=== PATIENT | female | born 1985 | race Caucasian/White ===

== ENCOUNTER 2019-07-06 01:04 | Observation (INO) ==
[2019-07-06] MEDS ORDERED: ONDANSETRON INJ 2 MG/ML 2 ML VIAL IV PRN (04:50)
[2019-07-06] MEDS ORDERED: BUTORPHANOL TARTRATE 1 MG/ML VIAL IV PRN (04:51)
[2019-07-06] MEDS: LACTATED RINGER'S 1,000 ML IV PRN ×2 (05:05→06:14)
--- NOTE | 2019-07-06 09:11 | Progress Note ---
Date of Service July 06, 2019 Subjective Pt seen in triage for nausea and vomiting at 40+ week On arrival her vomiting was improved after IVH and Zofran FHR CAT1 Ctx but minimal intensity pt reports feeling better she si scheduled for induction next week'agrred to go hoe and RTc if ctx return Results & Data Vital Signs (Past 12 Hours) Vital Signs Temp Pulse Resp BP 07/06/19 08:49 36.8 C 70 20 130/80 07/06/19 04:53 36.7 C 71 16 118/73 07/06/19 01:13 36.8 C 84 18 127/79 07/06/19 01:12 84 127/79
== END 2019-07-06 09:15 | disposition home or self-care (01) ==
LOC: OPB 01:04 → 4S1 01:04

== ENCOUNTER 2019-07-06 19:55 | Inpatient (IN) ==
[2019-07-06] MEDS ORDERED: OXYTOCIN 30 UNITS/500 ML BAG IV PRN (20:17)
[2019-07-06] MEDS: LACTATED RINGER'S 1,000 ML IV PRN ×2 (20:29→21:50)
[2019-07-06] MEDS ORDERED: BUPIVACAINE 0.25% 30 ML VIAL ONE (20:32)
[2019-07-06] MEDS ORDERED: ePHEDrine sulfate 50 MG/ML AMP ONE (20:32)
[2019-07-06] MEDS ORDERED: fentaNYL citrate 100 MCG/2 ML VIAL ONE (20:32)
[2019-07-06] MEDS ORDERED: fentaNYL 2MCG/ML ROPIV 1.25MG/ML 100 ML BAG EPI ONE (20:33)
[2019-07-06 20:40] LABS: Hematocrit (blood only) 34.1 % (37-47); Hemoglobin 11.8 g/dL (12.0-16.0); Mean Corpuscular Hemoglobin 30.2 pg (25-34); Mean Corpuscular Volume 87.2 fL (80-100); Mean Platelet Volume 10.5 fL (7.4-10.4); Platelet Count 303 K/uL (130-400); RDW Coefficient of Variation 13.2 % (11.5-14.5); RDW Standard Deviation 42.2 fL (36.4-46.3); Red Blood Count 3.91 M/uL (4.2-5.4); White Blood Count 14.01 K/uL (4.8-10.8)
--- NOTE | 2019-07-06 20:46 | Anesthesiology Consultation ---
Date of Service July 06, 2019 Assessment & Plan Chart Review Chart Review: Acceptable Risk for Surgery, Patient NOT seen in Pre Admission Testing and Acceptable Risk for Labor Epidural Consults Requested none ASA ASA2 Proposed Anesthesia Anesthesia Type: Labor Epidural Risk / Benefits Reviewed With: PT / POA / Parent / Guardian, Accepts Plan and I nformed Consent Obtained History Height/Weight Height: 5 ft 2 in Weight: 87.543 kg Allergies Allergy/AdvReac Type Severity Reaction Status Date / Time No Known Allergies Allergy Verified 07/06/19 01:34 Medications Home Medications Medication Instructions Recorded Confirmed Last Taken PNV cmb#95-ferrous fumarate-FA 1 tab PO DAILY 07/04/19 07/06/19 07/04/19 [] ferrous sulfate [Iron (ferrous 325 mg PO DAILY 07/04/19 07/06/19 07/04/19 sulfate)] Active Medications Generic Name Dose Route Start Last Admin Trade Name Freq PRN Reason Stop Dose Admin Lactated Ringer's 1,000 mls @ 125 mls/hr 07/06/19 20:17 07/06/19 20:29 Lr IV 07/08/19 20:16 125 mls/hr .Q8H PRN Administration L&D Protocol Protocol NPO Date Last Intake of Fluids: 07/06/19 Time Last Intake of Fluids: 18:30 Date Last Intake of Solids: 07/06/19 Time Last Intake of Solids: 12:00 Past Medical History Medical History Anemia GERD (gastroesophageal reflux disease) Obese [place] teeth removed Exercise / Class Metabolic Activity II 4-5 Yardwork/Stairs/Walk up hill Past Anesthesia History No Hx of Anesthesia Complications and No Family Hx of Anesthesia Complications History of PONV No Hx of PONV and No Hx of Motion Sickness Social History Smoking Status: Never smoker Hx Alcohol Use: No Hx Substance Use: No Physical Exam Vital Signs Last Vital Signs Pulse 78 07/06/19 20:41 Resp 22 07/06/19 20:04 BP 138/76 07/06/19 20:41 Constitutional + obese ENMT Mouth: no dentition abnormality Thyromental Distance: < 3.5 Finger Breadths Mallampati Class: II Neck normal visual inspection and trachea midline; neck extension not limited Respiratory normal respiratory effort Auscultation: lungs clear to auscultation bilaterally Cardiovascular Rate/Rhythm: regular rate and regular rhythm Heart Sounds: no murmur Musculoskeletal Spine: lumbar spine normal to inspection; normal cervical ROM Neurologic moves all extremities Motor/Sensory: no sensory deficit Psychiatric Orientation: alert and oriented x 3 Testing Laboratory Results 07/06/19 20:34
[2019-07-06] MEDS ORDERED: NALBUPHINE HCL INJ 10 MG/ML AMP IV PRN (21:12)
[2019-07-06] MEDS ORDERED: NALOXONE HCL 1 MG in SODIUM CHLORIDE 0.9% 1000ML 1,000 ML IV PRN (21:12)
[2019-07-06] MEDS ORDERED: NALOXONE HCL 0.4 MG/1 ML VIAL/CARP IV PRN (21:12)
[2019-07-06] MEDS ORDERED: DiphenhydrAMINE HCL 50 MG/ML VIAL IV PRN (21:12)
[2019-07-06] MEDS ORDERED: PROMETHAZINE HCL 25 MG in SODIUM CHLORIDE 0.9% 50 ML IV PRN (21:12)
[2019-07-06] MEDS ORDERED: ePHEDrine sulfate 50 MG/ML AMP IV PRN (21:12)
--- NOTE | 2019-07-06 21:38 | Labor Progress Brief Note ---
Date of Service July 06, 2019 Pt doing well s/p epidural analgesia VE; 4/100/-1 FHR; CAT1 AROM performed- light meconium, followed by late deceleration into the 90;s x5 mins Fetus responded to IVF,position change and oxygen FHR returns to baseline expectant management for now Results & Data Vital Signs (Past 12 Hours) Vital Signs Temp Pulse Resp BP Pulse Ox 07/06/19 21:32 82 99/56 L 100 07/06/19 21:29 86 112/64 07/06/19 21:27 89 96 07/06/19 21:25 108 H 108/62 07/06/19 21:22 97 H 107/57 L 96 07/06/19 21:19 85 105/58 L 07/06/19 21:17 90 96 07/06/19 21:16 96 H 102/55 L 07/06/19 21:13 93 H 104/57 L 07/06/19 21:12 94 H 97 07/06/19 21:10 95 H 108/55 L 07/06/19 21:07 91 H 104/55 L 97 07/06/19 21:04 82 121/65 07/06/19 21:02 91 H 98 07/06/19 20:57 80 98 07/06/19 20:52 74 98 07/06/19 20:45 36.8 C 07/06/19 20:41 78 138/76 07/06/19 20:04 87 22 128/77
[2019-07-06 21:51] LABS: Mean Corpuscular Hgb Conc 34.6 g/dL (32-36)
[2019-07-06] MEDS: ONDANSETRON INJ 2 MG/ML 2 ML VIAL IV PRN (22:07)
[2019-07-06] MEDS ORDERED: CALCIUM CARBONATE 500 MG CHEWABLE TAB PO PRN (23:25)
[2019-07-07] MEDS: LACTATED RINGER'S 1,000 ML IV PRN ×4 (03:17→15:13)
[2019-07-07] MEDS ORDERED: OXYTOCIN 30 UNITS/500 ML BAG IV PRN ×2 (03:33→18:00)
--- NOTE | 2019-07-07 03:33 | Labor Progress Brief Note ---
Date of Service July 07, 2019 pt doing well FHR; CAT1 Ctx. 2-4mins VE; 6/100/1 + meconium will augment Pitocin Results & Data Vital Signs (Past 12 Hours) Vital Signs Temp Pulse Resp BP Pulse Ox 07/07/19 03:27 92 H 100 07/07/19 03:25 83 129/63 07/07/19 03:22 94 H 99 07/07/19 03:17 91 H 100 07/07/19 03:15 90 115/63 07/07/19 03:12 87 99 07/07/19 03:07 89 99 07/07/19 03:06 103 H 121/57 L 07/07/19 03:02 76 96 07/07/19 03:00 37.2 C 18 07/07/19 02:57 80 106/56 L 94 07/07/19 02:52 79 95 07/07/19 02:47 79 95 07/07/19 02:46 79 107/56 L 07/07/19 02:42 79 95 07/07/19 02:37 80 95 07/07/19 02:35 90 110/59 L 07/07/19 02:32 81 95 07/07/19 02:27 81 94 07/07/19 02:25 74 110/54 L 07/07/19 02:22 79 95 07/07/19 02:17 76 95 07/07/19 02:16 79 108/56 L 07/07/19 02:12 76 95 07/07/19 02:07 78 106/58 L 96 07/07/19 02:02 76 96 07/07/19 02:00 20 07/07/19 01:57 72 96 07/07/19 01:55 73 113/59 L 07/07/19 01:52 74 96 07/07/19 01:47 72 97 07/07/19 01:45 73 108/58 L 07/07/19 01:42 73 97 07/07/19 01:37 75 100 07/07/19 01:35 73 123/75 07/07/19 01:32 102 H 100 07/07/19 01:30 20 07/07/19 01:27 86 125/76 99 07/07/19 01:22 85 100 07/07/19 01:17 97 H 100 07/07/19 01:15 97 H 134/94 07/07/19 01:12 71 99 07/07/19 01:07 72 129/75 100 07/07/19 01:02 79 100 07/07/19 01:00 20 07/07/19 00:57 109 H 100 07/07/19 00:56 121 H 149/104 H 07/07/19 00:52 87 100 07/07/19 00:50 36.9 C 07/07/19 00:47 101 H 99 07/07/19 00:46 103 H 128/74 07/07/19 00:42 74 95 07/07/19 00:40 72 94 07/07/19 00:37 81 96 07/07/19 00:35 71 106/57 L 07/07/19 00:34 75 94 07/07/19 00:32 73 94 07/07/19 00:30 20 07/07/19 00:29 72 94 07/07/19 00:27 72 95 07/07/19 00:25 70 113/62 07/07/19 00:22 71 96 07/07/19 00:17 68 97 07/07/19 00:16 73 119/59 L 07/07/19 00:12 72 96 07/07/19 00:07 75 99 07/07/19 00:05 71 120/60 07/07/19 00:02 66 100 07/07/19 00:00 20 07/06/19 23:57 67 100 07/06/19 23:55 72 118/59 L 07/06/19 23:52 69 99 07/06/19 23:47 74 99 07/06/19 23:45 70 113/59 L 07/06/19 23:42 68 99 07/06/19 23:37 72 98 07/06/19 23:36 78 126/58 L 07/06/19 23:32 73 98 07/06/19 23:30 18 07/06/19 23:27 94 H 99 07/06/19 23:26 82 123/65 07/06/19 23:22 113 H 99 07/06/19 23:17 126 H 99 07/06/19 23:16 73 122/76 07/06/19 23:12 86 100 07/06/19 23:07 84 100 07/06/19 23:05 77 122/76 07/06/19 23:02 100 H 97 07/06/19 23:00 36.7 C 20 07/06/19 22:57 85 98 07/06/19 22:56 89 130/79 07/06/19 22:52 84 97 07/06/19 22:47 95 H 97 07/06/19 22:45 87 127/76 07/06/19 22:42 84 97 07/06/19 22:37 90 97 07/06/19 22:35 77 125/63 07/06/19 22:32 88 97 07/06/19 22:27 95 H 99 07/06/19 22:25 90 119/69 07/06/19 22:22 81 97 07/06/19 22:17 85 97 07/06/19 22:16 83 118/61 07/06/19 22:12 102 H 97 07/06/19 22:07 92 H 98 07/06/19 22:06 96 H 135/71 07/06/19 22:02 92 H 97 07/06/19 21:57 90 95 07/06/19 21:56 92 H 94 07/06/19 21:55 88 103/58 L 07/06/19 21:52 89 96 07/06/19 21:47 85 97 07/06/19 21:45 85 100/57 L 07/06/19 21:42 89 97 07/06/19 21:37 95 H 98 07/06/19 21:34 81 100/58 L 07/06/19 21:32 82 99/56 L 100 07/06/19 21:29 86 112/64 07/06/19 21:27 89 96 07/06/19 21:25 108 H 108/62 07/06/19 21:22 97 H 107/57 L 96 07/06/19 21:19 85 105/58 L 07/06/19 21:17 90 96 07/06/19 21:16 96 H 102/55 L 07/06/19 21:13 93 H 104/57 L 07/06/19 21:12 94 H 97 07/06/19 21:10 95 H 108/55 L 07/06/19 21:07 91 H 104/55 L 97 07/06/19 21:04 82 121/65 07/06/19 21:02 91 H 98 07/06/19 20:57 80 98 07/06/19 20:52 74 98 07/06/19 20:45 36.8 C 07/06/19 20:41 78 138/76 07/06/19 20:04 87 22 128/77
[2019-07-07] MEDS: ONDANSETRON INJ 2 MG/ML 2 ML VIAL IV PRN (03:34)
[2019-07-07] MEDS ORDERED: fentaNYL 2MCG/ML ROPIV 1.25MG/ML 100 ML BAG EPI ONE (05:03)
[2019-07-07] MEDS: fentaNYL 2MCG/ML ROPIV 1.25MG/ML 100 ML BAG EPI PRN ×2 (05:04→11:20)
--- NOTE | 2019-07-07 08:38 | Obstetrical Progress Note ---
Date of Service July 07, 2019 Subjective Patient is seen and examined She feels well, no pain, some pressure in vagina+ VSS Afebrile FHR categ I VE; 8/ 90%/ coned head tip at +1 [place] ctxs q 1-2 min, pitocin is at 8 miu/min Plan to half pitocin and continue to monitor closely Results & Data Vital Signs (Past 12 Hours) Vital Signs Temp Pulse Resp BP Pulse Ox 07/07/19 08:32 92 H 98 07/07/19 08:27 78 96 07/07/19 08:22 82 97 07/07/19 08:17 82 97 07/07/19 08:12 85 99 07/07/19 08:07 94 H 100 07/07/19 08:06 85 126/74 07/07/19 08:02 89 100 07/07/19 07:57 86 100 07/07/19 07:52 88 100 07/07/19 07:47 89 98 07/07/19 07:42 81 96 07/07/19 07:37 80 98 07/07/19 07:32 77 100 07/07/19 07:27 78 99 07/07/19 07:26 83 139/73 07/07/19 07:22 74 100 07/07/19 07:17 86 100 07/07/19 07:16 96 H 141/81 H 07/07/19 07:12 80 100 07/07/19 07:07 75 100 07/07/19 07:05 83 137/79 07/07/19 07:02 78 100 07/07/19 07:00 20 07/07/19 06:57 86 100 07/07/19 06:56 78 133/75 07/07/19 06:52 84 100 07/07/19 06:47 82 99 07/07/19 06:45 91 H 134/73 07/07/19 06:42 84 96 07/07/19 06:37 77 97 07/07/19 06:36 77 129/70 07/07/19 06:32 84 96 07/07/19 06:30 18 07/07/19 06:27 77 99 07/07/19 06:25 84 125/73 07/07/19 06:22 86 99 07/07/19 06:19 37.1 C 20 07/07/19 06:17 83 97 07/07/19 06:15 78 125/72 07/07/19 06:12 77 99 07/07/19 06:07 77 99 07/07/19 06:06 76 133/74 07/07/19 06:02 84 100 07/07/19 06:00 20 07/07/19 05:57 84 99 07/07/19 05:55 90 138/80 07/07/19 05:52 94 H 97 07/07/19 05:47 92 H 98 07/07/19 05:45 85 131/78 07/07/19 05:42 89 98 07/07/19 05:37 95 H 98 07/07/19 05:35 89 134/78 07/07/19 05:32 94 H 98 07/07/19 05:27 88 100 07/07/19 05:25 85 133/77 07/07/19 05:22 93 H 99 07/07/19 05:17 94 H 100 07/07/19 05:16 100 H 130/79 07/07/19 05:12 87 98 07/07/19 05:07 96 H 99 07/07/19 05:06 85 131/79 07/07/19 05:02 85 98 07/07/19 05:00 18 07/07/19 04:57 81 100 07/07/19 04:56 77 127/69 07/07/19 04:52 78 99 07/07/19 04:47 85 121/69 98 07/07/19 04:42 76 99 07/07/19 04:37 84 100 07/07/19 04:35 82 137/75 07/07/19 04:32 85 100 07/07/19 04:27 94 H 99 07/07/19 04:26 83 135/71 07/07/19 04:22 90 100 07/07/19 04:17 82 100 07/07/19 04:16 86 131/80 07/07/19 04:12 88 99 07/07/19 04:07 83 100 07/07/19 04:05 85 133/81 07/07/19 04:02 89 100 07/07/19 04:00 37.1 C 20 07/07/19 03:57 84 99 07/07/19 03:56 83 126/76 07/07/19 03:52 96 H 100 07/07/19 03:47 95 H 100 07/07/19 03:46 86 122/78 07/07/19 03:42 93 H 99 07/07/19 03:37 102 H 122/74 99 07/07/19 03:32 102 H 99 07/07/19 03:27 92 H 100 07/07/19 03:25 83 129/63 07/07/19 03:22 94 H 99 07/07/19 03:17 91 H 100 07/07/19 03:15 90 115/63 07/07/19 03:12 87 99 07/07/19 03:07 89 99 07/07/19 03:06 103 H 121/57 L 07/07/19 03:02 76 96 07/07/19 03:00 37.2 C 18 07/07/19 02:57 80 106/56 L 94 07/07/19 02:52 79 95 07/07/19 02:47 79 95 07/07/19 02:46 79 107/56 L 07/07/19 02:42 79 95 07/07/19 02:37 80 95 07/07/19 02:35 90 110/59 L 07/07/19 02:32 81 95 07/07/19 02:27 81 94 07/07/19 02:25 74 110/54 L 07/07/19 02:22 79 95 07/07/19 02:17 76 95 07/07/19 02:16 79 108/56 L 07/07/19 02:12 76 95 07/07/19 02:07 78 106/58 L 96 07/07/19 02:02 76 96 07/07/19 02:00 20 07/07/19 01:57 72 96 07/07/19 01:55 73 113/59 L 07/07/19 01:52 74 96 07/07/19 01:47 72 97 07/07/19 01:45 73 108/58 L 07/07/19 01:42 73 97 07/07/19 01:37 75 100 07/07/19 01:35 73 123/75 07/07/19 01:32 102 H 100 07/07/19 01:30 20 07/07/19 01:27 86 125/76 99 07/07/19 01:22 85 100 07/07/19 01:17 97 H 100 07/07/19 01:15 97 H 134/94 07/07/19 01:12 71 99 07/07/19 01:07 72 129/75 100 07/07/19 01:02 79 100 07/07/19 01:00 20 07/07/19 00:57 109 H 100 07/07/19 00:56 121 H 149/104 H 07/07/19 00:52 87 100 07/07/19 00:50 36.9 C 07/07/19 00:47 101 H 99 07/07/19 00:46 103 H 128/74 07/07/19 00:42 74 95 07/07/19 00:40 72 94 07/07/19 00:37 81 96 07/07/19 00:35 71 106/57 L 07/07/19 00:34 75 94 07/07/19 00:32 73 94 07/07/19 00:30 20 07/07/19 00:29 72 94 07/07/19 00:27 72 95 07/07/19 00:25 70 113/62 07/07/19 00:22 71 96 07/07/19 00:17 68 97 07/07/19 00:16 73 119/59 L 07/07/19 00:12 72 96 07/07/19 00:07 75 99 07/07/19 00:05 71 120/60 07/07/19 00:02 66 100 07/07/19 00:00 20 07/06/19 23:57 67 100 07/06/19 23:55 72 118/59 L 07/06/19 23:52 69 99 07/06/19 23:47 74 99 07/06/19 23:45 70 113/59 L 07/06/19 23:42 68 99 07/06/19 23:37 72 98 07/06/19 23:36 78 126/58 L 07/06/19 23:32 73 98 07/06/19 23:30 18 07/06/19 23:27 94 H 99 07/06/19 23:26 82 123/65 07/06/19 23:22 113 H 99 07/06/19 23:17 126 H 99 07/06/19 23:16 73 122/76 07/06/19 23:12 86 100 07/06/19 23:07 84 100 07/06/19 23:05 77 122/76 07/06/19 23:02 100 H 97 07/06/19 23:00 36.7 C 20 07/06/19 22:57 85 98 07/06/19 22:56 89 130/79 07/06/19 22:52 84 97 07/06/19 22:47 95 H 97 07/06/19 22:45 87 127/76 07/06/19 22:42 84 97 07/06/19 22:37 90 97 07/06/19 22:35 77 125/63 07/06/19 22:32 88 97 07/06/19 22:27 95 H 99 07/06/19 22:25 90 119/69 07/06/19 22:22 81 97 07/06/19 22:17 85 97 07/06/19 22:16 83 118/61 07/06/19 22:12 102 H 97 07/06/19 22:07 92 H 98 07/06/19 22:06 96 H 135/71 07/06/19 22:02 92 H 97 07/06/19 21:57 90 95 07/06/19 21:56 92 H 94 07/06/19 21:55 88 103/58 L 07/06/19 21:52 89 96 07/06/19 21:47 85 97 07/06/19 21:45 85 100/57 L 07/06/19 21:42 89 97 07/06/19 21:37 95 H 98 07/06/19 21:34 81 100/58 L 07/06/19 21:32 82 99/56 L 100 07/06/19 21:29 86 112/64 07/06/19 21:27 89 96 07/06/19 21:25 108 H 108/62 07/06/19 21:22 97 H 107/57 L 96 07/06/19 21:19 85 105/58 L 07/06/19 21:17 90 96 07/06/19 21:16 96 H 102/55 L 07/06/19 21:13 93 H 104/57 L 07/06/19 21:12 94 H 97 07/06/19 21:10 95 H 108/55 L 07/06/19 21:07 91 H 104/55 L 97 07/06/19 21:04 82 121/65 07/06/19 21:02 91 H 98 07/06/19 20:57 80 98 07/06/19 20:52 74 98 07/06/19 20:45 36.8 C 07/06/19 20:41 78 138/76
--- NOTE | 2019-07-07 13:12 | Obstetrical Progress Note ---
Date of Service July 07, 2019 Subjective Patient is reevaluated She was just checked her her nurse, Darline and cervix was only anterior lip and head much lower in pelvis per her FHR categ I Continue to monitor, will start pushing when fully dilated Results & Data Vital Signs (Past 12 Hours) Vital Signs Temp Pulse Resp BP Pulse Ox 07/07/19 13:07 86 100 07/07/19 13:06 79 130/74 07/07/19 13:02 84 99 07/07/19 12:57 85 100 07/07/19 12:52 85 98 07/07/19 12:47 86 100 07/07/19 12:42 83 98 07/07/19 12:37 85 100 07/07/19 12:35 80 127/70 07/07/19 12:32 79 100 07/07/19 12:27 77 100 07/07/19 12:22 80 100 07/07/19 12:17 80 100 07/07/19 12:12 84 100 07/07/19 12:07 79 100 07/07/19 12:05 77 132/73 07/07/19 12:02 82 100 07/07/19 11:57 78 100 07/07/19 11:52 88 100 07/07/19 11:47 83 100 07/07/19 11:42 86 100 07/07/19 11:37 100 H 100 07/07/19 11:35 100 H 131/79 07/07/19 11:32 98 H 100 07/07/19 11:27 80 100 07/07/19 11:22 76 100 07/07/19 11:17 75 100 07/07/19 11:12 87 100 07/07/19 11:07 75 100 07/07/19 11:06 37.1 C 86 20 126/67 07/07/19 11:02 78 100 07/07/19 10:57 87 100 07/07/19 10:52 87 100 07/07/19 10:47 77 100 07/07/19 10:42 78 100 07/07/19 10:37 84 100 07/07/19 10:35 83 117/68 07/07/19 10:32 74 100 07/07/19 10:27 76 100 07/07/19 10:22 79 100 07/07/19 10:17 79 100 07/07/19 10:12 93 H 100 07/07/19 10:07 94 H 100 07/07/19 10:05 101 H 125/72 07/07/19 10:02 106 H 99 07/07/19 09:57 96 H 99 07/07/19 09:52 87 97 07/07/19 09:47 86 96 07/07/19 09:42 78 96 07/07/19 09:37 84 121/65 96 07/07/19 09:32 81 96 07/07/19 09:27 75 96 07/07/19 09:22 81 96 07/07/19 09:17 79 96 07/07/19 09:12 79 96 07/07/19 09:07 86 98 07/07/19 09:06 78 113/64 07/07/19 09:02 81 96 07/07/19 09:00 37.1 C 18 07/07/19 08:57 83 96 07/07/19 08:52 82 98 07/07/19 08:47 85 98 07/07/19 08:42 81 96 07/07/19 08:37 87 97 07/07/19 08:36 78 120/67 07/07/19 08:32 92 H 98 07/07/19 08:27 78 96 07/07/19 08:22 82 97 07/07/19 08:17 82 97 07/07/19 08:12 85 99 07/07/19 08:07 94 H 100 07/07/19 08:06 85 126/74 07/07/19 08:02 89 100 07/07/19 07:57 86 100 07/07/19 07:52 88 100 07/07/19 07:47 89 98 07/07/19 07:42 81 96 07/07/19 07:37 80 98 07/07/19 07:32 77 100 07/07/19 07:27 78 99 07/07/19 07:26 83 139/73 07/07/19 07:22 74 100 07/07/19 07:17 86 100 07/07/19 07:16 96 H 141/81 H 07/07/19 07:12 80 100 07/07/19 07:07 75 100 07/07/19 07:05 83 137/79 07/07/19 07:02 78 100 07/07/19 07:00 20 11/01/19 06:57 86 100 07/07/19 06:56 78 133/75 07/07/19 06:52 84 100 07/07/19 06:47 82 99 07/07/19 06:45 91 H 134/73 07/07/19 06:42 84 96 07/07/19 06:37 77 97 07/07/19 06:36 77 129/70 07/07/19 06:32 84 96 07/07/19 06:30 18 07/07/19 06:27 77 99 07/07/19 06:25 84 125/73 07/07/19 06:22 86 99 07/07/19 06:19 37.1 C 20 07/07/19 06:17 83 97 07/07/19 06:15 78 125/72 07/07/19 06:12 77 99 07/07/19 06:07 77 99 07/07/19 06:06 76 133/74 07/07/19 06:02 84 100 07/07/19 06:00 20 07/07/19 05:57 84 99 07/07/19 05:55 90 138/80 07/07/19 05:52 94 H 97 07/07/19 05:47 92 H 98 07/07/19 05:45 85 131/78 07/07/19 05:42 89 98 07/07/19 05:37 95 H 98 07/07/19 05:35 89 134/78 07/07/19 05:32 94 H 98 07/07/19 05:27 88 100 07/07/19 05:25 85 133/77 07/07/19 05:22 93 H 99 07/07/19 05:17 94 H 100 07/07/19 05:16 100 H 130/79 07/07/19 05:12 87 98 07/07/19 05:07 96 H 99 07/07/19 05:06 85 131/79 07/07/19 05:02 85 98 07/07/19 05:00 18 07/07/19 04:57 81 100 07/07/19 04:56 77 127/69 07/07/19 04:52 78 99 07/07/19 04:47 85 121/69 98 07/07/19 04:42 76 99 07/07/19 04:37 84 100 07/07/19 04:35 82 137/75 07/07/19 04:32 85 100 07/07/19 04:27 94 H 99 07/07/19 04:26 83 135/71 07/07/19 04:22 90 100 07/07/19 04:17 82 100 07/07/19 04:16 86 131/80 07/07/19 04:12 88 99 07/07/19 04:07 83 100 07/07/19 04:05 85 133/81 07/07/19 04:02 89 100 07/07/19 04:00 37.1 C 20 07/07/19 03:57 84 99 07/07/19 03:56 83 126/76 07/07/19 03:52 96 H 100 07/07/19 03:47 95 H 100 07/07/19 03:46 86 122/78 07/07/19 03:42 93 H 99 07/07/19 03:37 102 H 122/74 99 07/07/19 03:32 102 H 99 07/07/19 03:27 92 H 100 07/07/19 03:25 83 129/63 07/07/19 03:22 94 H 99 07/07/19 03:17 91 H 100 07/07/19 03:15 90 115/63 07/07/19 03:12 87 99 07/07/19 03:07 89 99 07/07/19 03:06 103 H 121/57 L 07/07/19 03:02 76 96 07/07/19 03:00 37.2 C 18 07/07/19 02:57 80 106/56 L 94 07/07/19 02:52 79 95 07/07/19 02:47 79 95 07/07/19 02:46 79 107/56 L 07/07/19 02:42 79 95 07/07/19 02:37 80 95 07/07/19 02:35 90 110/59 L 07/07/19 02:32 81 95 07/07/19 02:27 81 94 07/07/19 02:25 74 110/54 L 07/07/19 02:22 79 95 07/07/19 02:17 76 95 07/07/19 02:16 79 108/56 L 07/07/19 02:12 76 95 07/07/19 02:07 78 106/58 L 96 07/07/19 02:02 76 96 07/07/19 02:00 20 07/07/19 01:57 72 96 07/07/19 01:55 73 113/59 L 07/07/19 01:52 74 96 07/07/19 01:47 72 97 07/07/19 01:45 73 108/58 L 07/07/19 01:42 73 97 07/07/19 01:37 75 100 07/07/19 01:35 73 123/75 07/07/19 01:32 102 H 100 07/07/19 01:30 20 07/07/19 01:27 86 125/76 99 07/07/19 01:22 85 100 07/07/19 01:17 97 H 100 07/07/19 01:15 97 H 134/94 07/07/19 01:12 71 99
--- NOTE | 2019-07-07 14:26 | Obstetrical Progress Note ---
Date of Service July 07, 2019 Subjective Patient is reevaluated She feels pressure in vagina and uncomfortable VE; 9/ cervix all around the head, head at +1, caput +, feels OP, meconium stained fluid+ Bed side US done: Head facing up, spine in posterior uterus, FHR 140's, still lots of fluid around the baby FHR categ I [place]: ctxs q 2-3 min AP: No significant cervical change for over 6 hours, persistent OP, Meconium stained fluid+ Recommended delivery, discussed the risks as major surgery, bleeding, infection, injury to surrounding organs, blood cloths in legs, lungs Discussed future chances of TOLAC/ She likes to think about it and decide with her family. Results & Data Vital Signs (Past 12 Hours) Vital Signs Temp Pulse Resp BP Pulse Ox 07/07/19 14:17 94 H 100 07/07/19 14:14 90 91 07/07/19 14:12 90 99 07/07/19 14:07 86 100 07/07/19 14:05 84 128/73 07/07/19 14:02 91 H 99 07/07/19 13:57 88 100 07/07/19 13:52 88 100 07/07/19 13:47 86 99 07/07/19 13:42 79 100 07/07/19 13:37 86 99 07/07/19 13:35 88 131/79 07/07/19 13:32 83 98 07/07/19 13:27 95 H 97 07/07/19 13:22 81 98 07/07/19 13:17 80 98 07/07/19 13:12 87 99 07/07/19 13:07 86 100 07/07/19 13:06 79 130/74 07/07/19 13:02 84 99 07/07/19 12:57 85 100 07/07/19 12:52 85 98 07/07/19 12:47 86 100 07/07/19 12:42 83 98 07/07/19 12:37 85 100 07/07/19 12:35 80 127/70 07/07/19 12:32 79 100 07/07/19 12:27 77 100 07/07/19 12:22 80 100 07/07/19 12:17 80 100 07/07/19 12:12 84 100 07/07/19 12:07 79 100 07/07/19 12:05 77 132/73 07/07/19 12:02 82 100 07/07/19 11:57 78 100 07/07/19 11:52 88 100 07/07/19 11:47 83 100 07/07/19 11:42 86 100 07/07/19 11:37 100 H 100 07/07/19 11:35 100 H 131/79 07/07/19 11:32 98 H 100 07/07/19 11:27 80 100 07/07/19 11:22 76 100 07/07/19 11:17 75 100 07/07/19 11:12 87 100 07/07/19 11:07 75 100 07/07/19 11:06 37.1 C 86 20 126/67 07/07/19 11:02 78 100 07/07/19 10:57 87 100 07/07/19 10:52 87 100 07/07/19 10:47 77 100 07/07/19 10:42 78 100 07/07/19 10:37 84 100 07/07/19 10:35 83 117/68 07/07/19 10:32 74 100 07/07/19 10:27 76 100 07/07/19 10:22 79 100 07/07/19 10:17 79 100 07/07/19 10:12 93 H 100 07/07/19 10:07 94 H 100 07/07/19 10:05 101 H 125/72 07/07/19 10:02 106 H 99 07/07/19 09:57 96 H 99 07/07/19 09:52 87 97 07/07/19 09:47 86 96 07/07/19 09:42 78 96 07/07/19 09:37 84 121/65 96 07/07/19 09:32 81 96 07/07/19 09:27 75 96 07/07/19 09:22 81 96 07/07/19 09:17 79 96 07/07/19 09:12 79 96 07/07/19 09:07 86 98 07/07/19 09:06 78 113/64 07/07/19 09:02 81 96 07/07/19 09:00 37.1 C 18 07/07/19 08:57 83 96 07/07/19 08:52 82 98 07/07/19 08:47 85 98 07/07/19 08:42 81 96 07/07/19 08:37 87 97 07/07/19 08:36 78 120/67 07/07/19 08:32 92 H 98 07/07/19 08:27 78 96 07/07/19 08:22 82 97 07/07/19 08:17 82 97 07/07/19 08:12 85 99 07/07/19 08:07 94 H 100 07/07/19 08:06 85 126/74 07/07/19 08:02 89 100 07/07/19 07:57 86 100 07/07/19 07:52 88 100 07/07/19 07:47 89 98 07/07/19 07:42 81 96 07/07/19 07:37 80 98 07/07/19 07:32 77 100 07/07/19 07:27 78 99 07/07/19 07:26 83 139/73 07/07/19 07:22 74 100 07/07/19 07:17 86 100 07/07/19 07:16 96 H 141/81 H 07/07/19 07:12 80 100 07/07/19 07:07 75 100 07/07/19 07:05 83 137/79 07/07/19 07:02 78 100 07/07/19 07:00 20 07/07/19 06:57 86 100 07/07/19 06:56 78 133/75 07/07/19 06:52 84 100 07/07/19 06:47 82 99 07/07/19 06:45 91 H 134/73 07/07/19 06:42 84 96 07/07/19 06:37 77 97 07/07/19 06:36 77 129/70 07/07/19 06:32 84 96 07/07/19 06:30 18 07/07/19 06:27 77 99 07/07/19 06:25 84 125/73 07/07/19 06:22 86 99 07/07/19 06:19 37.1 C 20 07/07/19 06:17 83 97 07/07/19 06:15 78 125/72 07/07/19 06:12 77 99 07/07/19 06:07 77 99 07/07/19 06:06 76 133/74 07/07/19 06:02 84 100 07/07/19 06:00 20 07/07/19 05:57 84 99 07/07/19 05:55 90 138/80 07/07/19 05:52 94 H 97 07/07/19 05:47 92 H 98 07/07/19 05:45 85 131/78 07/07/19 05:42 89 98 07/07/19 05:37 95 H 98 07/07/19 05:35 89 134/78 07/07/19 05:32 94 H 98 07/07/19 05:27 88 100 07/07/19 05:25 85 133/77 07/07/19 05:22 93 H 99 07/07/19 05:17 94 H 100 07/07/19 05:16 100 H 130/79 07/07/19 05:12 87 98 07/07/19 05:07 96 H 99 07/07/19 05:06 85 131/79 07/07/19 05:02 85 98 07/07/19 05:00 18 07/07/19 04:57 81 100 07/07/19 04:56 77 127/69 07/07/19 04:52 78 99 07/07/19 04:47 85 121/69 98 07/07/19 04:42 76 99 07/07/19 04:37 84 100 07/07/19 04:35 82 137/75 07/07/19 04:32 85 100 07/07/19 04:27 94 H 99 07/07/19 04:26 83 135/71 07/07/19 04:22 90 100 07/07/19 04:17 82 100 07/07/19 04:16 86 131/80 07/07/19 04:12 88 99 07/07/19 04:07 83 100 07/07/19 04:05 85 133/81 07/07/19 04:02 89 100 07/07/19 04:00 37.1 C 20 07/07/19 03:57 84 99 07/07/19 03:56 83 126/76 07/07/19 03:52 96 H 100 07/07/19 03:47 95 H 100 07/07/19 03:46 86 122/78 07/07/19 03:42 93 H 99 07/07/19 03:37 102 H 122/74 99 07/07/19 03:32 102 H 99 07/07/19 03:27 92 H 100 07/07/19 03:25 83 129/63 07/07/19 03:22 94 H 99 07/07/19 03:17 91 H 100 07/07/19 03:15 90 115/63 07/07/19 03:12 87 99 07/07/19 03:07 89 99 07/07/19 03:06 103 H 121/57 L 07/07/19 03:02 76 96 07/07/19 03:00 37.2 C 18 07/07/19 02:57 80 106/56 L 94 07/07/19 02:52 79 95 07/07/19 02:47 79 95 07/07/19 02:46 79 107/56 L 07/07/19 02:42 79 95 07/07/19 02:37 80 95 07/07/19 02:35 90 110/59 L 07/07/19 02:32 81 95 07/07/19 02:27 81 94 07/07/19 02:25 74 110/54 L
--- NOTE | 2019-07-07 14:58 | Obstetrical Progress Note ---
Date of Service July 07, 2019 Subjective Patient thought about it and declines section She likes to wait Discussed OP, cervical change, what to expect in details Discussed meconium stained fluid and possible risks She likes to be rechecked in an hour All questions were answered Continue to monitor closely Results & Data Vital Signs (Past 12 Hours) Vital Signs Temp Pulse Resp BP Pulse Ox 07/07/19 14:52 95 H 98 07/07/19 14:47 81 99 07/07/19 14:42 84 100 07/07/19 14:37 85 99 07/07/19 14:35 90 134/77 07/07/19 14:32 95 H 99 07/07/19 14:27 101 H 100 07/07/19 14:22 100 H 100 07/07/19 14:17 94 H 100 07/07/19 14:14 90 91 07/07/19 14:12 90 99 07/07/19 14:07 86 100 07/07/19 14:05 84 128/73 07/07/19 14:02 91 H 99 07/07/19 13:57 88 100 07/07/19 13:52 88 100 07/07/19 13:47 86 99 07/07/19 13:42 79 100 07/07/19 13:37 86 99 07/07/19 13:35 88 131/79 07/07/19 13:32 83 98 07/07/19 13:27 95 H 97 07/07/19 13:22 81 98 07/07/19 13:17 80 98 07/07/19 13:12 87 99 07/07/19 13:07 86 100 07/07/19 13:06 79 130/74 07/07/19 13:02 84 99 07/07/19 12:57 85 100 07/07/19 12:52 85 98 07/07/19 12:47 86 100 07/07/19 12:42 83 98 07/07/19 12:37 85 100 07/07/19 12:35 80 127/70 07/07/19 12:32 79 100 07/07/19 12:27 77 100 07/07/19 12:22 80 100 07/07/19 12:17 80 100 07/07/19 12:12 84 100 07/07/19 12:07 79 100 07/07/19 12:05 77 132/73 07/07/19 12:02 82 100 07/07/19 11:57 78 100 07/07/19 11:52 88 100 07/07/19 11:47 83 100 07/07/19 11:42 86 100 07/07/19 11:37 100 H 100 07/07/19 11:35 100 H 131/79 07/07/19 11:32 98 H 100 07/07/19 11:27 80 100 07/07/19 11:22 76 100 07/07/19 11:17 75 100 07/07/19 11:12 87 100 07/07/19 11:07 75 100 07/07/19 11:06 37.1 C 86 20 126/67 07/07/19 11:02 78 100 07/07/19 10:57 87 100 07/07/19 10:52 87 100 07/07/19 10:47 77 100 07/07/19 10:42 78 100 07/07/19 10:37 84 100 07/07/19 10:35 83 117/68 07/07/19 10:32 74 100 07/07/19 10:27 76 100 07/07/19 10:22 79 100 07/07/19 10:17 79 100 07/07/19 10:12 93 H 100 07/07/19 10:07 94 H 100 07/07/19 10:05 101 H 125/72 07/07/19 10:02 106 H 99 07/07/19 09:57 96 H 99 07/07/19 09:52 87 97 07/07/19 09:47 86 96 07/07/19 09:42 78 96 07/07/19 09:37 84 121/65 96 07/07/19 09:32 81 96 07/07/19 09:27 75 96 07/07/19 09:22 81 96 07/07/19 09:17 79 96 07/07/19 09:12 79 96 07/07/19 09:07 86 98 07/07/19 09:06 78 113/64 07/07/19 09:02 81 96 07/07/19 09:00 37.1 C 18 07/07/19 08:57 83 96 07/07/19 08:52 82 98 07/07/19 08:47 85 98 07/07/19 08:42 81 96 07/07/19 08:37 87 97 07/07/19 08:36 78 120/67 07/07/19 08:32 92 H 98 07/07/19 08:27 78 96 07/07/19 08:22 82 97 07/07/19 08:17 82 97 07/07/19 08:12 85 99 07/07/19 08:07 94 H 100 07/07/19 08:06 85 126/74 07/07/19 08:02 89 100 07/07/19 07:57 86 100 07/07/19 07:52 88 100 07/07/19 07:47 89 98 07/07/19 07:42 81 96 07/07/19 07:37 80 98 07/07/19 07:32 77 100 07/07/19 07:27 78 99 07/07/19 07:26 83 139/73 07/07/19 07:22 74 100 07/07/19 07:17 86 100 07/07/19 07:16 96 H 141/81 H 07/07/19 07:12 80 100 07/07/19 07:07 75 100 07/07/19 07:05 83 137/79 07/07/19 07:02 78 100 07/07/19 07:00 20 07/07/19 06:57 86 100 07/07/19 06:56 78 133/75 07/07/19 06:52 84 100 07/07/19 06:47 82 99 07/07/19 06:45 91 H 134/73 07/07/19 06:42 84 96 07/07/19 06:37 77 97 07/07/19 06:36 77 129/70 07/07/19 06:32 84 96 07/07/19 06:30 18 07/07/19 06:27 77 99 07/07/19 06:25 84 125/73 07/07/19 06:22 86 99 07/07/19 06:19 37.1 C 20 07/07/19 06:17 83 97 07/07/19 06:15 78 125/72 07/07/19 06:12 77 99 07/07/19 06:07 77 99 07/07/19 06:06 76 133/74 07/07/19 06:02 84 100 07/07/19 06:00 20 07/07/19 05:57 84 99 07/07/19 05:55 90 138/80 07/07/19 05:52 94 H 97 07/07/19 05:47 92 H 98 07/07/19 05:45 85 131/78 07/07/19 05:42 89 98 07/07/19 05:37 95 H 98 07/07/19 05:35 89 134/78 07/07/19 05:32 94 H 98 07/07/19 05:27 88 100 07/07/19 05:25 85 133/77 07/07/19 05:22 93 H 99 07/07/19 05:17 94 H 100 07/07/19 05:16 100 H 130/79 07/07/19 05:12 87 98 07/07/19 05:07 96 H 99 07/07/19 05:06 85 131/79 07/07/19 05:02 85 98 07/07/19 05:00 18 07/07/19 04:57 81 100 07/07/19 04:56 77 127/69 07/07/19 04:52 78 99 07/07/19 04:47 85 121/69 98 07/07/19 04:42 76 99 07/07/19 04:37 84 100 07/07/19 04:35 82 137/75 07/07/19 04:32 85 100 07/07/19 04:27 94 H 99 07/07/19 04:26 83 135/71 07/07/19 04:22 90 100 07/07/19 04:17 82 100 07/07/19 04:16 86 131/80 07/07/19 04:12 88 99 07/07/19 04:07 83 100 07/07/19 04:05 85 133/81 07/07/19 04:02 89 100 07/07/19 04:00 37.1 C 20 07/07/19 03:57 84 99 07/07/19 03:56 83 126/76 07/07/19 03:52 96 H 100 07/07/19 03:47 95 H 100 07/07/19 03:46 86 122/78 07/07/19 03:42 93 H 99 07/07/19 03:37 102 H 122/74 99 07/07/19 03:32 102 H 99 07/07/19 03:27 92 H 100 07/07/19 03:25 83 129/63 07/07/19 03:22 94 H 99 07/07/19 03:17 91 H 100 07/07/19 03:15 90 115/63 07/07/19 03:12 87 99 07/07/19 03:07 89 99 07/07/19 03:06 103 H 121/57 L 07/07/19 03:02 76 96 07/07/19 03:00 37.2 C 18 07/07/19 02:57 80 106/56 L 94
--- NOTE | 2019-07-07 16:32 | Obstetrical Progress Note ---
Date of Service July 07, 2019 Subjective Patient was found to be fully dilated at 1615 by her nurse and desired to push She has been pushing with good efforts VE; scalp visible at introitus with pushes, +2 FHR categ I Continue to monitor closely Results & Data Vital Signs (Past 12 Hours) Vital Signs Temp Pulse Resp BP Pulse Ox 07/07/19 16:27 105 H 99 07/07/19 16:22 106 H 79 L 07/07/19 16:20 98 H 86 L 07/07/19 16:17 97 H 100 07/07/19 16:12 92 H 100 07/07/19 16:07 103 H 99 07/07/19 16:05 94 H 132/78 07/07/19 16:02 90 99 07/07/19 15:57 37.2 C 93 H 20 100 07/07/19 15:52 83 98 07/07/19 15:47 96 H 100 07/07/19 15:42 82 98 07/07/19 15:38 83 123/68 07/07/19 15:37 82 96 07/07/19 15:32 87 96 07/07/19 15:27 86 96 07/07/19 15:22 85 96 07/07/19 15:17 87 96 07/07/19 15:12 88 100 07/07/19 15:07 82 98 07/07/19 15:06 87 130/69 07/07/19 15:02 84 100 07/07/19 14:57 81 96 07/07/19 14:52 95 H 98 07/07/19 14:47 81 99 07/07/19 14:42 84 100 07/07/19 14:37 85 99 07/07/19 14:35 37.4 C 90 20 134/77 07/07/19 14:32 95 H 99 07/07/19 14:27 101 H 100 07/07/19 14:22 100 H 100 07/07/19 14:17 94 H 100 07/07/19 14:14 90 91 07/07/19 14:12 90 99 07/07/19 14:07 86 100 07/07/19 14:05 84 128/73 07/07/19 14:02 91 H 99 07/07/19 13:57 88 100 07/07/19 13:52 88 100 07/07/19 13:47 86 99 07/07/19 13:42 79 100 07/07/19 13:37 86 99 07/07/19 13:35 88 131/79 07/07/19 13:32 83 98 07/07/19 13:27 95 H 97 07/07/19 13:22 81 98 07/07/19 13:17 80 98 07/07/19 13:12 87 99 07/07/19 13:07 86 100 07/07/19 13:06 79 130/74 07/07/19 13:02 84 99 07/07/19 12:57 85 100 07/07/19 12:52 85 98 07/07/19 12:47 86 100 07/07/19 12:42 83 98 07/07/19 12:37 85 100 07/07/19 12:35 80 127/70 07/07/19 12:32 79 100 07/07/19 12:27 77 100 07/07/19 12:22 80 100 07/07/19 12:17 80 100 07/07/19 12:12 84 100 07/07/19 12:07 79 100 07/07/19 12:05 77 132/73 07/07/19 12:02 82 100 07/07/19 11:57 78 100 07/07/19 11:52 88 100 07/07/19 11:47 83 100 07/07/19 11:42 86 100 07/07/19 11:37 100 H 100 07/07/19 11:35 100 H 131/79 07/07/19 11:32 98 H 100 07/07/19 11:27 80 100 07/07/19 11:22 76 100 07/07/19 11:17 75 100 07/07/19 11:12 87 100 07/07/19 11:07 75 100 07/07/19 11:06 37.1 C 86 20 126/67 07/07/19 11:02 78 100 07/07/19 10:57 87 100 07/07/19 10:52 87 100 07/07/19 10:47 77 100 07/07/19 10:42 78 100 07/07/19 10:37 84 100 07/07/19 10:35 83 117/68 07/07/19 10:32 74 100 07/07/19 10:27 76 100 07/07/19 10:22 79 100 07/07/19 10:17 79 100 07/07/19 10:12 93 H 100 07/07/19 10:07 94 H 100 07/07/19 10:05 101 H 125/72 07/07/19 10:02 106 H 99 07/07/19 09:57 96 H 99 07/07/19 09:52 87 97 07/07/19 09:47 86 96 07/07/19 09:42 78 96 07/07/19 09:37 84 121/65 96 07/07/19 09:32 81 96 07/07/19 09:27 75 96 07/07/19 09:22 81 96 07/07/19 09:17 79 96 07/07/19 09:12 79 96 07/07/19 09:07 86 98 07/07/19 09:06 78 113/64 07/07/19 09:02 81 96 07/07/19 09:00 37.1 C 18 07/07/19 08:57 83 96 07/07/19 08:52 82 98 07/07/19 08:47 85 98 07/07/19 08:42 81 96 07/07/19 08:37 87 97 07/07/19 08:36 78 120/67 07/07/19 08:32 92 H 98 07/07/19 08:27 78 96 07/07/19 08:22 82 97 07/07/19 08:17 82 97 07/07/19 08:12 85 99 07/07/19 08:07 94 H 100 07/07/19 08:06 85 126/74 07/07/19 08:02 89 100 07/07/19 07:57 86 100 07/07/19 07:52 88 100 07/07/19 07:47 89 98 07/07/19 07:42 81 96 07/07/19 07:37 80 98 07/07/19 07:32 77 100 07/07/19 07:27 78 99 07/07/19 07:26 83 139/73 07/07/19 07:22 74 100 07/07/19 07:17 86 100 07/07/19 07:16 96 H 141/81 H 07/07/19 07:12 80 100 07/07/19 07:07 75 100 07/07/19 07:05 83 137/79 07/07/19 07:02 78 100 07/07/19 07:00 20 07/07/19 06:57 86 100 07/07/19 06:56 78 133/75 07/07/19 06:52 84 100 07/07/19 06:47 82 99 07/07/19 06:45 91 H 134/73 07/07/19 06:42 84 96 07/07/19 06:37 77 97 07/07/19 06:36 77 129/70 07/07/19 06:32 84 96 07/07/19 06:30 18 07/07/19 06:27 77 99 07/07/19 06:25 84 125/73 07/07/19 06:22 86 99 07/07/19 06:19 37.1 C 20 07/07/19 06:17 83 97 07/07/19 06:15 78 125/72 07/07/19 06:12 77 99 07/07/19 06:07 77 99 07/07/19 06:06 76 133/74 07/07/19 06:02 84 100 07/07/19 06:00 20 07/07/19 05:57 84 99 07/07/19 05:55 90 138/80 07/07/19 05:52 94 H 97 07/07/19 05:47 92 H 98 07/07/19 05:45 85 131/78 07/07/19 05:42 89 98 07/07/19 05:37 95 H 98 07/07/19 05:35 89 134/78 07/07/19 05:32 94 H 98 07/07/19 05:27 88 100 07/07/19 05:25 85 133/77 07/07/19 05:22 93 H 99 07/07/19 05:17 94 H 100 07/07/19 05:16 100 H 130/79 07/07/19 05:12 87 98 07/07/19 05:07 96 H 99 07/07/19 05:06 85 131/79 07/07/19 05:02 85 98 07/07/19 05:00 18 07/07/19 04:57 81 100 07/07/19 04:56 77 127/69 07/07/19 04:52 78 99 07/07/19 04:47 85 121/69 98 07/07/19 04:42 76 99 07/07/19 04:37 84 100 07/07/19 04:35 82 137/75 07/07/19 04:32 85 100
[2019-07-07] MEDS ORDERED: METHYLERGONOVINE MALEATE 0.2 MG/ML AMP ONE (17:34)
[2019-07-07] MEDS ORDERED: SUPERCREAM 0.870% 15 GM JAR EXT PRN (18:00)
[2019-07-07] MEDS ORDERED: DIPHTHERIA/TETANUS/PERTUSSIS 0.5 ML SYR/VIAL IM ONE (18:00)
[2019-07-07] MEDS ORDERED: BENZOCAINE 20% AER SPR 82.5 GM CAN EXT PRN (18:00)
[2019-07-07] MEDS ORDERED: OXYCODONE/ACETAMINOPHEN 5mg/325mg TAB PO PRN (18:00)
[2019-07-07] MEDS ORDERED: METHYLERGONOVINE MALEATE 0.2 MG/ML AMP IM ONE (18:00)
[2019-07-07] MEDS ORDERED: HYDROCORTISONE ACETATE 25 MG SUPP PR PRN (18:00)
[2019-07-07] MEDS ORDERED: ACETAMINOPHEN 325 MG TAB PO PRN (18:00)
[2019-07-07] MEDS ORDERED: BISACODYL 10 MG SUPP PR PRN (18:00)
[2019-07-07] MEDS ORDERED: miSOPROStol 200 MCG TAB PR ONE (18:00)
[2019-07-07] MEDS ORDERED: LACTATED RINGER'S 1,000 ML IV SCH (18:30)
[2019-07-07] MEDS ORDERED: cefOXitin 2,000 MG/60 ML BAG IV ONE (18:30)
--- NOTE | 2019-07-07 19:02 | Anesthesia Procedure Note ---
Date of Service July 07, 2019 Anesthesia Post Epidural Note Vital Signs Vital Signs: Temp Pulse Resp BP Pulse Ox 37.2 C 95 H 20 138/73 97 07/07/19 15:57 07/07/19 18:50 07/07/19 15:57 07/07/19 18:50 07/07/19 17:02 Pain Intensity Lower Back: Pain Intensity: 2 Notes Mental Status: alert / awake / arousable Nausea / Vomiting: adequately controlled Pain: adequately controlled Airway Patency, RR, SpO2: stable & adequate BP & HR: stable & adequate Hydration State: stable & adequate Neuraxial Anesthesia: was administered and sensory block is resolving Anesthetic Complications: no major complications apparent and Pt Satisfied with anesthetic care Epidural: Removed without complications and With tip intact
--- NOTE | 2019-07-07 19:55 | Delivery Summary ---
DATE OF OPERATION: 07/07/2019 TIME OF DELIVERY OF BABY: 1700 p.m. DETAILS OF DELIVERY: The patient was found to be fully dilated and desired to push. She pushed for about 45 minutes and delivered the head without difficulty and unable to deliver the shoulders with minimal traction. Shoulder dystocia was noted and notified to the nursing team. The patient's bed was lowered all the way down and with Candida maneuver and suprapubic pressure, shoulders were delivered with minimal traction and then baby was delivered, taken off to the mother where mouth and nose were suctioned. Cord was clamped x2, cut and baby was handed off to the waiting pediatric team. The vagina and perineum were checked for lacerations. There was a first degree vaginal laceration in the posterior fourchette as well as on the left lower vaginal wall hymenal area and the periclitoral area. Those were repaired with 3-0 Vicryl in a running fashion. Excellent hemostasis was achieved and the placenta was found to be in the vagina, delivered spontaneously as intact and complete. Uterus was explored, found to be empty. Lower segment was cleared of all clots and debris. Fundus was firm and IV Pitocin infusion was started. The vagina and perineum were checked for lacerations. The repaired laceration in the perineum was oozing. It was repaired again with [id number] stitches x2 and then the left side of the labia was also bleeding. It was repaired with 3-0 Vicryl with [id number] stitches x2. There was noted to be bright red blood coming from the uterus and the vaginal retractors were placed. Cervix was visualized to have a pumping spot at 12 o'clock position. Cervix was held. There was a small 1 cm indentation/tear on the cervix. It was repaired with 2-0 Vicryl with a [id number] stitch x2 and then the patient kept having bleeding from the uterine cavity bright red and then, uterus was again manually examined, emptied clots from the uterus, and the fundus massage was done and she was given IM Methergine and rectal Cytotec, and the bleeding slowed down. EBL was 500 ml at that point. Vagina and perineum were checked again. There was again oozing on the left side of the vagina hymenal site. It was repaired again with [id number] stitch x1. Excellent hemostasis was achieved. The fundus was firm again. The bleeding was minimal and the procedure was ended. Rectal exam was done, excellent sphincter tone was noted and no sutures were felt. Mom and baby tolerated the procedure well. Sponge, lap, needle count was correct x2. Baby was a viable female infant, Apgars were 2 and 9 at first and fifth minutes and no complications happened and I was present during the whole procedure. I attest to the content of the Intraoperative Record and any orders documented therein. Any exceptions are noted below. FIORELLA
[2019-07-07] MEDS: DOCUSATE SODIUM 100 MG CAP PO SCH (21:15)
[2019-07-08] MEDS: IBUPROFEN 600 MG TAB PO PRN ×2 (01:00→08:42)
[2019-07-08 07:14] LABS: Hematocrit (blood only) 25.3 % (37-47); Hemoglobin 8.9 g/dL (12.0-16.0); Mean Corpuscular Hemoglobin 31.1 pg (25-34); Mean Corpuscular Hgb Conc 35.2 g/dL (32-36); Mean Corpuscular Volume 88.5 fL (80-100); Mean Platelet Volume 10.2 fL (7.4-10.4); Platelet Count 235 K/uL (130-400); RDW Coefficient of Variation 13.3 % (11.5-14.5); RDW Standard Deviation 43.3 fL (36.4-46.3); Red Blood Count 2.86 M/uL (4.2-5.4)
[2019-07-08] MEDS: PRENATAL VITAMIN 1 TAB PO SCH (08:41)
[2019-07-08] MEDS: FERROUS SULFATE 325 MG TAB PO SCH (08:41)
[2019-07-08] MEDS: DOCUSATE SODIUM 100 MG CAP PO SCH ×2 (08:41→21:24)
--- NOTE | 2019-07-08 12:16 | Obstetrical Progress Note ---
Date of Service July 08, 2019 Assessment & Plan (1) normal course: PPD #1 pt doing well disch tomorrow Subjective Ambulation: ambulating normally Voiding: no voiding problems Passing Gas:: Yes Diet Tolerance:: regular diet Lochia:: Small Feeding Type:: breast feeding Review of Systems All systems reviewed & are unremarkable except as noted in HPI & below Physical Exam Constitutional WD/WN, vitals as above well developed and well nourished Eyes PERRL, conjunctivae normal, anicteric sclerae Neck trachea midline, no thyromegaly Respiratory normal respiratory effort, lungs clear to auscultation Auscultation: no crackles, no rales and no wheezes Cardiovascular RRR, no murmur, no edema Gastrointestinal (Abdomen) normal bowel sounds, soft, nontender, no hepatosplenomegaly Uterus is below umbilicus Musculoskeletal no cyanosis or clubbing, extremities motor strength 5/5 Skin no rashes, warm and dry Neurologic patellar DTR's 2+ bilat, sensation intact Psychiatric A+Ox3, euthymic affect Genitourinary normal external appearance Results & Data Vital Signs (Past 12 Hours) Vital Signs Temp Pulse Resp BP Pulse Ox 07/08/19 11:20 36.6 C 93 H 20 123/75 07/08/19 07:55 36.6 C 74 20 113/74 07/08/19 04:35 36.7 C 76 16 103/66 95
[2019-07-08] MEDS ORDERED: BISACODYL 5 MG TABEC PO SCH (20:00)
[2019-07-09 06:13] LABS: Hematocrit (blood only) 24.4 % (37-47); Hemoglobin 8.3 g/dL (12.0-16.0)
[2019-07-09] MEDS: FERROUS SULFATE 325 MG TAB PO SCH (08:12)
[2019-07-09] MEDS: PRENATAL VITAMIN 1 TAB PO SCH (08:12)
[2019-07-09] MEDS: DOCUSATE SODIUM 100 MG CAP PO SCH (08:12)
--- NOTE | 2019-07-09 12:11 | Obstetrical Progress Note ---
Date of Service July 09, 2019 Assessment & Plan (1) normal course: PPD#2 pt doing well d/c home with instructions Results & Data Vital Signs (Past 12 Hours) Vital Signs Temp Pulse Resp BP Pulse Ox 07/09/19 07:30 36.6 C 76 20 133/82 96
== END 2019-07-09 19:00 | disposition home or self-care (01) | DRG 807 ==
LOC: OPB 19:55 → 4S1 19:55 → 4S2 07-07 20:51